=== PATIENT | female | born 2000 | race Caucasian/White ===

== ENCOUNTER 2019-07-23 16:54 | Emergency (ER) | payer BC, SELFPAY ==
[2019-07-23 17:08] VITALS: BP 108/65; PULSE 89; RESP 16; TEMP 37.1; O2SAT 99
--- NOTE | 2019-07-23 17:10 | ED.ABDPAIN ---
HPI - Abdominal Pain General Chief Complaint: Abdominal Pain Stated Complaint: lower abdominal pain Time Seen by Provider: 07/23/19 17:10 Source: patient and RN notes reviewed History of Present Illness HPI narrative: Patient is a 18-year-old female that presents the urgent care with complaints of possible UTI related to lower abdominal pain and bilateral flank pain. Patient states is been off and on for approximately 2 weeks. States that she did have a period 2 weeks ago and has had a negative test. Patient denies any fever or vomiting. Reports of intermittent nausea. Denies any vaginal discharge. Denies any need for STI check. Denies any blood in the urine. No other acute complaints. No acute distress noted. Patient read the plan of care. Related Data Home Medications Medication Instructions Recorded Confirmed clonazepam 0.5 mg PO DAILY 03/04/19 03/26/19 sertraline [Zoloft] 100 mg PO DAILY 03/04/19 03/26/19 Allergies Allergy/AdvReac Type Severity Reaction Status Date / Time sulfamethoxazole Allergy Mild RASH Verified 04/06/19 14:52 trimethoprim Allergy Mild Verified 04/06/19 14:52 ENVIRONMENTAL ALLERGENS Allergy Mild Uncoded 04/06/19 14:52 Review of Systems Review of Systems: Narrative: CONSTITUTIONAL: Denies fever, chills, or sweats. EYES: Denies visual changes, redness, or discharge. ENT: Denies rhinorrhea, congestion, sore throat, or otalgia. CARDIOVASCULAR: Denies chest pain, palpitations, or edema. RESPIRATORY: Denies cough or dyspnea. GASTROINTESTINAL: Reports of intermittent lower abdominal pain without nausea, vomiting, diarrhea GENITOURINARY: Denies dysuria or hematuria. SKIN: Denies rash or itching. MUSCULOSKELETAL: Reports of low back pain NEUROLOGIC: Denies headache, numbness, or weakness. All other systems reviewed are negative, except as documented in HPI. [facility] Past Medical History Medical History (Updated 07/23/19 @ 17:21 by ROBEL Arceo) Anxiety Depression HSV (herpes simplex virus) anogenital infection Family History Family History (System 04/06/19 @ 14:52 by Martha Gonzáles) Father Heart disease Mother Anxiety Asthma Mother Anxiety Social History Social History (System 04/06/19 @ 14:52 by Martha Gonzáles) Smoking packs per day: 1 Smoking cigarettes per day: 20.0 Years smoked: 4 Smoking pack-years: 4.00 Smoking status: Current every day smoker Tobacco type: cigarettes Second hand tobacco smoke exposure: Yes Substance use: never Gender identity (if verbalized by the patient): Female Spiritual care concerns: No Comments At the time of my signature, I reviewed and agree with the nursing past medical, surgical, social, and family history. There is no relevant family history pertinent to the patient complaint. Exam Narrative: Exam Narrative: GENERAL: This is a well-nourished, well-developed patient, in no apparent distress. HEAD: normocephalic, atraumatic. EYES: PERRL. Sclera clear/white. Vision is grossly intact. EARS: External ears normal NOSE: External nose normal with no obvious nasal discharge THROAT: Mucous membranes moist NECK: Neck supple CARDIOVASCULAR: Regular rate and rhythm without murmurs, gallops, or rubs. RESPIRATORY: Clear to auscultation. Breath sounds equal bilaterally. No wheezes, rales, or rhonchi. GASTROINTESTINAL: Abdomen soft, mild suprapubic tenderness, nondistended. Bowel sounds are hyperactive. No guarding. Obturator negative SKIN: warm, intact with no suspicious lesions or rash, good texture and turgor. NEURO: awake, alert, and oriented to person, place and time. There were no obvious focal neurologic abnormalities. EXTREMITIES: No clubbing, cyanosis, or edema. BACK: Negative bilateral CVA tenderness Course Vital Signs Vital signs: Vital Signs Temperature 98.7 F 07/23/19 17:08 Pulse Rate 89 07/23/19 17:08 Respiratory Rate 16 07/23/19 17:08 Blood Pressure 108/65 07/23/19
== END 2019-07-23 17:28 | disposition home or self-care (01) ==
PROVIDERS: Emergency Provider Nurse Practitioner Family; PCP Nurse Practitioner Family
DX: R11.0 Nausea (principal); F17.210 Nicotine dependence, cigarettes, uncomplicated
CPT/HCPCS: 81003; 99212; G0463

== ENCOUNTER 2019-12-11 05:10 | Emergency (ER) | payer BC, SELFPAY ==
[2019-12-11 05:20] VITALS: BP 117/88; PULSE 108; RESP 22; TEMP 36.8; O2SAT 98
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
--- NOTE | 2019-12-11 06:32 | PC.NURSE ---
pt left the building s/p talking to her dad on the phone.
[2019-12-11 06:46] VITALS: BP 118/71; PULSE 90; RESP 20; O2SAT 97
== END 2019-12-11 06:50 | disposition home or self-care (01) ==
PROVIDERS: Emergency Provider Emergency Medicine
DX: S01.01XA Laceration without foreign body of scalp, initial encounter (principal); W19.XXXA Unspecified fall, initial encounter
CPT/HCPCS: 12004; 99282

== ENCOUNTER 2020-03-10 20:21 | Emergency (ER) | payer OTHER, SELFPAY ==
--- NOTE | ~2020-03-10 | XR_ITS ---
EXAMINATION: XR hand LT min 3V INDICATION: Left hand pain and laceration TECHNIQUE: Three views of the left hand are obtained. COMPARISON: 10/10/2015 FINDINGS: Bone alignment is normal. There is no fracture. No radiopaque foreign body is identified. T here appears to be soft tissue swelling near the fifth proximal phalanx. IMPRESSION: 1. Soft tissue swelling without acute osseous abnormality or radiopaque foreign body identified. Reviewed, dictated and finalized at location [facility]. [facility] [employer]
--- NOTE | ~2020-03-10 | XR_ITS ---
EXAMINATION: XR hand RT min 3V INDICATION: Right hand pain and laceration TECHNIQUE: Three views of the right hand are obtained. COMPARISON: 10/10/2015 FINDINGS: Dressings somewhat obscure visualization of the hand soft tissues. There is soft tissue swe lling of the third and fourth fingers as well as near the fifth metacarpophalangeal joint. No radiopa que foreign body is identified. No fracture is identified. IMPRESSION: 1. Soft tissue swelling without evidence of radiopaque foreign body or acute osseous abnormality. Reviewed, dictated and finalized at location [facility]. [employer] IMPRESSION: 1. Soft tissue swelling without evidence of radiopaque foreign body or acute os seous abnormality.
[2020-03-10 20:23] VITALS: BP 135/74; PULSE 126; RESP 18; TEMP 36.8; O2SAT 98
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
[2020-03-10] MEDS: LIDOCAINE HCL 1% LOCAL INJ 20 ML VIAL INFILTRATE (21:36)
[2020-03-10] MEDS: CELLULOSE OXIDIZED 2 x 14 INCH 1 PKT XX (22:28)
[2020-03-10 22:45] VITALS: BP 127/88; PULSE 93; RESP 16; O2SAT 100
== END 2020-03-10 22:46 | disposition home or self-care (01) ==
PROVIDERS: Emergency Provider Emergency Medicine; PCP Nurse Practitioner Family
DX: S61.411A Laceration without foreign body of right hand, initial encounter (principal); S61.412A Laceration without foreign body of left hand, initial encounter; F41.9 Anxiety disorder, unspecified; F32.9 Major depressive disorder, single episode, unspecified; F17.210 Nicotine dependence, cigarettes, uncomplicated; W22.8XXA Striking against or struck by other objects, initial encounter
CPT/HCPCS: 12002; 73130; 99283

== ENCOUNTER 2020-06-26 18:19 | Emergency (ER) | payer OTHER, SELFPAY ==
--- NOTE | 2020-06-26 18:22 | ECG_ITS ---
Measurements Intervals [place] Rate: 99 P: 83 SC: 128 QRS: 75 QRSD: 89 T: 24 QT: 343 QTc: 440 Interpretive Statements SINUS RHYTHM INCOMPLETE RIGHT BUNDLE BRANCH BLOCK BORDERLINE T WAVE ABNORMALITY- ANT/INF LEADS BASELINE ARTIFACT- I, III, AVL, V3 BORDERLINE ECG Electronically Signed On 06-27-2020 7:02:43 CDT by Julien Mooney D.O.
--- NOTE | 2020-06-26 18:44 | PC.NURSE ---
PATIENT CALLED BACK TO GET EKG AND STATES CAN YOU TAKE OUT THIS IV, IM LEAVING PT AMBULATED TO EXIT WITH NO DIFFICULTY
== END 2020-06-26 18:44 | disposition left against medical advice (07) ==
LOC: ANHED 18:54
PROVIDERS: Emergency Provider Family Medicine; PCP Nurse Practitioner Family
DX: I45.10 Unspecified right bundle-branch block (principal)
CPT/HCPCS: 93005; 99199

== ENCOUNTER 2022-07-03 18:56 | Emergency (ER) | payer OTHER, SELFPAY ==
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
[2022-07-03 19:05] VITALS: BP 127/85; PULSE 105; RESP 16; TEMP 36.3; O2SAT 99
[2022-07-03 19:07] VITALS: BP 127/85; PULSE 105; RESP 16; TEMP 36.3; O2SAT 99
== END 2022-07-03 19:35 | disposition home or self-care (01) ==
PROVIDERS: Emergency Provider Nurse Practitioner Family
DX: S61.411A Laceration without foreign body of right hand, initial encounter (principal); W25.XXXA Contact with sharp glass, initial encounter; F17.210 Nicotine dependence, cigarettes, uncomplicated
CPT/HCPCS: 12001; 99212; G0463

== ENCOUNTER 2023-12-27 16:20 | Emergency (ER) | payer OTHER, SELFPAY ==
--- NOTE | 2023-12-27 16:22 | ED.EXTPRO ---
HPI - Extremity Problem General Chief complaint: Extremity Problem,Nontraumatic Stated complaint: left thumb issue Time Seen by Provider: 12/27/23 16:21 Source: patient Mode of arrival: ambulatory Limitations: no limitations History of Present Illness HPI Narrative: Elvira is a 23-year-old female patient presenting to the clinic today with complaints left thumb swelling and redness. She reports it started out with a blister to the volar aspect of the left thumb and then it became red and swollen. Attempted to pop the area today and got some clear fluid out. She denies any fever or chills. Allergic to Bactrim. Has what appears to be pus under the skin on the distal volar aspect of the thumb as well as to the medial thumb nail Related Data Home Medications Medication Instructions Recorded Confirmed clonazepam 1 mg tablet 1 mg PO DAILY 07/03/22 12/27/23 quetiapine 25 mg tablet 25 mg PO DAILY 07/03/22 12/27/23 venlafaxine 37.5 mg 37.5 mg PO DAILY 07/03/22 12/27/23 capsule,extended release 24 hr venlafaxine 75 mg capsule,extended 75 mg PO DAILY 07/03/22 12/27/23 release 24 hr Allergies Allergy/AdvReac Type Severity Reaction Status Date / Time sulfamethoxazole Allergy Mild RASH Verified 12/27/23 16:28 trimethoprim Allergy Mild Unknown Verified 12/27/23 16:28 ENVIRONMENTAL ALLERGENS Allergy Mild Unknown Uncoded 12/27/23 16:28 Review of Systems Review of Systems: Pertinent positives per HPI. Patient denies any fever, chills, rash, headache, visual changes, dizziness, cough, runny nose, sore throat, shortness of breath, chest pain, palpitations, nausea, vomiting, diarrhea, constipation, abdominal pain, or any urinary issues. [facility] Past Medical History Medical History Anxiety Depression HSV (herpes simplex virus) anogenital infection Family History Family History Father Congestive heart failure Mother Anxiety Asthma Mother No problems noted. Social History Social History Smoking packs per day: 1 Smoking cigarettes per day: 20.0 Years smoked: 4 Smoking pack-years: 4.00 Smoking status: Current every day smoker Tobacco type: cigarettes Second hand tobacco smoke exposure: Yes Alcohol intake: current Substance use: never Gender identity (if verbalized by the patient): Female Spiritual care concerns: No Comments At the time of my signature, I reviewed and agree with the nursing past medical, surgical, social, and family history. There is no relevant family history pertinent to the patient complaint. Exam Narrative: General: Well-developed, well nourished, in no apparent distress Head: Normocephalic, atraumatic. Cardio: Regular rate and rhythm, s1 and s2 normal, no murmur appreciated. Resp: Clear to auscultation bilaterally, no rhonchi, rales, wheezing or rubs. Integumentary: [place], warm, and dry, redness and swelling to the PIP joint to the distal left thumb. Has what appears to be pus under the skin on the distal volar aspect of the thumb as well as to the medial thumb nail Course Course Emergency Course: Portions of this record may have been created with voice recognition software. Level of Care: Express Care Visit Vital Signs Vital signs: Vital signs reviewed MDM - Extremity (Nontraumatic) MDM Narrative Medical decision making narrative: At the time of visit patient is resting comfortably on the exam table. Patient appears to be nontoxic. Offered to drain and get a wound culture of the pustule area of the thumb and patient declined at this time. Plan: Will place patient on clindamycin to treat for left thumb cellulitis. Supportive measures were discussed with the patient and they voiced understanding discharge instructions and agrees to treatment plan. Return precautions reviewed Di
[2023-12-27 16:35] VITALS: BP 126/79; PULSE 75; RESP 18; TEMP 36.6; O2SAT 99
== END 2023-12-27 16:50 | disposition home or self-care (01) ==
PROVIDERS: Emergency Provider Nurse Practitioner Family; PCP Nurse Practitioner Family
DX: L03.012 Cellulitis of left finger (principal); F17.210 Nicotine dependence, cigarettes, uncomplicated; F41.9 Anxiety disorder, unspecified; F32.A Depression, unspecified
CPT/HCPCS: 99213; G0463

== ENCOUNTER 2024-10-02 18:19 | Emergency (ER) | payer OTHER, SELFPAY ==
[2024-10-02 18:26] VITALS: BP 108/68; PULSE 78; RESP 16; TEMP 36.6; O2SAT 99
--- NOTE | 2024-10-02 18:26 | ED.DENTAL ---
HPI - Dental/Oral General Chief complaint: Dental/Oral Stated complaint: Dental Pain/Ear Irritation Time Seen by Provider: 10/02/24 18:26 Source: patient Mode of arrival: ambulatory Limitations: no limitations History of Present Illness HPI Narrative: 24 yo F presents with c/o L upper dental pain. Pain radiating to L ear. Does not have dentist. All systems reviewed and negative except as noted above. Related Data Home Medications ?Medication ?Instructions ?Recorded ?Confirmed ?Last Taken ?Type clonazepam 1 mg tablet 1 mg PO DAILY 07/03/22 12/27/23 Unknown History sertraline 25 mg tablet mg 10/02/24 Unknown History Allergies Allergy/AdvReac Type Severity Reaction Status Date / Time sulfamethoxazole Allergy Mild RASH Verified 10/02/24 18:22 trimethoprim Allergy Mild Rash Verified 10/02/24 18:22 ENVIRONMENTAL ALLERGENS Allergy Mild Unknown Uncoded 10/02/24 18:22 Review of Systems Review of Systems: CONSTITUTIONAL: Denies fever, chills, or sweats. EYES: Denies visual changes, redness, or discharge. ENT: Denies rhinorrhea, congestion, sore throat, or otalgia. Reports L upper dental pain CARDIOVASCULAR: Denies chest pain, palpitations, or edema. RESPIRATORY: Denies cough or dyspnea. GASTROINTESTINAL: Denies abdominal pain, nausea, vomiting, or diarrhea. GENITOURINARY: Denies dysuria or hematuria. SKIN: Denies rash or itching. MUSCULOSKELETAL: Denies back pain, joint pain, or myalgia. NEUROLOGIC: Denies headache, numbness, or weakness. PSYCHIATRIC: Denies anxiety or depression. All other systems reviewed are negative, except as documented in HPI. [facility] Past Medical History Medical History Anxiety Depression HSV (herpes simplex virus) anogenital infection Family History Family History Father Congestive heart failure Mother Anxiety Asthma Mother No problems noted. Social History Social History Smoking packs per day: 1 Smoking cigarettes per day: 20.0 Years smoked: 4 Smoking pack-years: 4.00 Smoking status: Current every day smoker Tobacco type: cigarettes Second hand tobacco smoke exposure: Yes Alcohol intake: current Substance use: never Gender identity (if verbalized by the patient): Female Spiritual care concerns: No Comments At time of signature, agree with nursing past medical, surgical, social and family history. There is no relevant family history pertinent to the presenting complaint. Exam Narrative: GENERAL: This is a well-nourished, well-developed patient, in no apparent distress. HEAD: normocephalic, atraumatic. EYES: PERRL. Sclera clear/white. Vision is grossly intact. EARS: External ears normal NOSE: External nose normal MOUTH: tenderness tooth #16, surrounding swelling. no fluctuance concerning for abscess. NECK: Neck supple, non-tender without lymphadenopathy, masses or thyromegaly. CARDIOVASCULAR: Regular rate and rhythm without murmurs, gallops, or rubs. RESPIRATORY: Clear to auscultation. Breath sounds equal bilaterally. No wheezes, rales, or rhonchi. SKIN: warm, Dry, intact with no suspicious lesions or rash, good texture and turgor. NEURO: awake, alert, and oriented to person, place and time. There were no obvious focal neurologic abnormalities. EXTREMITIES: No joint tenderness, effusion, or edema noted. Course Course Level of Care: Express Care Visit Vital Signs Vital signs: Vital Signs Temperature 36.6 C 10/02/24 18:26 Pulse Rate 78 10/02/24 18:26 Respiratory Rate 16 10/02/24 18:26 Blood Pressure 108/68 10/02/24 18:26 Pulse Oximetry 99 10/02/24 18:26 Oxygen Delivery Room Air 10/02/24 18:26 Temperature 36.6 C 10/02/24 18:26 Pulse Rate 78 10/02/24 18:26 Respiratory Rate 16 10/02/24 18:26 Blood Pressure 108/68 10/02/24 18:26 Pulse Oximetry 99 10/02/24 18:26 Oxygen Delivery Room Air 10/02/24 18:26 reviewed MDM - Dental/Oral MDM Narrative Medical decision making narrative: will treat dental pain with abx. pt well appearing, nontoxic. given dental clinic list for follow up . Discharge Plan Discharge Clinical Impression: Pain, dental Patient Disposition: Home Condition: Stable Instructions: Antibiotic Form, Toothache (ED) Additional Instructions: take antibiotic as prescribed until gone. Take ibuprofen every 6-8 hours as needed for pain. Follow-up with dentist at next available appointment. Patient Language: Wolof Prescriptions: New ibuprofen 800 mg tablet 800 mg PO TID PRN (Reason: pain) Qty: 30 0RF amoxicillin 875 mg tablet 875 mg PO Q12H 10 Days Qty: 20 0RF No Action clonazepam 1 mg tablet 1 mg PO DAILY sertraline 25 mg tablet Follow-up/Referrals: ABDULAZIZ,MATILDA CARWLEY [Primary Care Provider] - Time of Disposition: 18:34
== END 2024-10-02 18:40 | disposition home or self-care (01) ==
PROVIDERS: Emergency Provider Nurse Practitioner Family; PCP Nurse Practitioner Family
DX: K08.89 Other specified disorders of teeth and supporting structures (principal); F17.210 Nicotine dependence, cigarettes, uncomplicated; F41.9 Anxiety disorder, unspecified; F32.A Depression, unspecified
CPT/HCPCS: 99213; G0463

== ENCOUNTER 2024-12-15 11:09 | Emergency (ER) | payer OTHER, SELFPAY ==
--- NOTE | 2024-12-15 11:11 | ED_ITS ---
HPI - Dental/Oral General Chief complaint: Dental/Oral Stated complaint: Dental Pain Time Seen by Provider: 12/15/24 11:11 Source: patient Mode of arrival: ambulatory Limitations: no limitations History of Present Illness HPI Narrative: Patient is a 24-year-old female who presents with left lower dental pain for 2 days. Similar infection 2 months ago. Patient is attempting to establish with dentist currently. Patient has taken Tylenol ibuprofen and naproxen. Related Data Home Medications ?Medication ?Instructions ?Recorded ?Confirmed ?Last Taken ?Type diazepam 2 mg tablet mg 12/15/24 Unknown History sertraline 50 mg tablet mg 12/15/24 Unknown History Allergies Allergy/AdvReac Type Severity Reaction Status Date / Time sulfamethoxazole Allergy Mild RASH Verified 12/15/24 11:47 trimethoprim Allergy Mild Rash Verified 12/15/24 11:47 ENVIRONMENTAL ALLERGENS Allergy Mild Unknown Uncoded 10/02/24 18:22 Review of Systems Review of Systems: All systems reviewed & are unremarkable except as noted in HPI and below Constitutional: Constitutional: Denies body ache(s), Denies fever(s), Denies headache(s), Denies malaise and Denies weakness Eyes: Eyes: Denies loss of vision ENT: Denies otalgia, Reports facial pain (jaw), Denies headache(s), Denies nasal discharge, Denies sinus pain and Denies sore throat Cardiovascular: Cardiovascular: Denies chest pain, Denies irregular heart rhythm and Denies dyspnea Respiratory: Respiratory: Denies dyspnea Gastrointestinal: Gastrointestinal: Denies abdominal pain, Denies melena, De nies hematochezia, Denies diarrhea, Denies nausea and Denies vomiting Musculoskeletal: Musculoskeletal: Denies back pain, Denies myalgias and Denies arthralgias Integumentary/Breasts: Skin/Breast: Denies pruritus and Denies rash Neurologic: Denies headache(s), Denies loss of vision and Denies weakness Psychiatric: Psychiatric: Reports no additional psychiatric complaints PMFSH Past Medical History Medical History Depression Anxiety HSV (herpes simplex virus) anogenital infection Family History Family History Father Congestive heart failure Mother Anxiety Asthma Mother No problems noted. Social History Social History Smoking packs per day: 1 Smoking cigarettes per day: 20.0 Years smoked: 4 Smoking pack-years: 4.00 Smoking status: Current every day smoker Tobacco type: cigarettes Second hand tobacco smoke exposure: Yes Alcohol intake: current Substance use: never Gender identity (if verbalized by the patient): Female Spiritual care concerns: No Comments At time of signature, agree with nursing past medical, surgical, social and family history. There is no relevant family history pertinent to the presenting complaint. Exam Const: General: cooperative, healthy appearing, comfortable, no acute distress and well nourished Nutritional Appearance: well nourished Orientation/consciousness: patient oriented x3 Limitations: no limitations HENMT: Head: normal to inspection, normocephalic and atraumatic Ears: hearing grossly normal bilaterally, external ears normal, TM's normal bilaterally and mastoids normal bilaterally Face/Nose/Sinus: Normal external nose present, normal facial exam and face symmetric Face and sinus: normal facial exam and face symmetric Mouth: Yes Normal oral and palatal mucosa present, Yes lip normal, Yes tongue normal, Yes Normal salivary glands and ducts present, Yes moist mucous membranes, No drooling, No muffled voice and No trismus Teeth and gingiva: abnormal tooth and associated gingiva lower left second molar tender, with associated gingival edema, dentin fractured and pulp exposed and fair dentition Throat: posterior oropharynx normal and tonsils normal Other: The tooth in question is very carious and the gum is swollen and tender around it. There is no facial swelling, cervical or submandibular lymphadenopathy. The patient appears uncomfortable and in pain. Eyes: General: appearance normal, both eyes and all related structures Alig nment and Position: alignment normal and position normal Periorbital: periorbital findings normal Eyelids: eyelids normal Pupils: Equal, round and reactive pupils present EOM: EOMs intact bilaterally Neck: Neck: normal visual inspection, full ROM, no lymphadenopathy and supple Chest: Chest palpation & inspection: normal inspection of the chest Resp: Effort & Inspection: normal respiratory effort and able to speak in complete sentences Auscultation: clear to auscultation bilaterally Cardio: Rate: regular rate Rhythm: regular rhythm Heart sounds: S1 normal heart sound present and S2 normal heart sound present GI: Inspection: normal to inspection Skin: General skin exam: normal color and no rashes or lesions noted Neuro: General: patient oriented x3 and moves all extremities Cranial nerves: Yes Equal, round and reactive pupils present Speech: normal speech Gait exam (Neuro): Normal gait present Extrem: General: normal to inspection, full ROM and no edema Psych: Appearance: grossly normal and well kempt Mental Status: mental status grossly normal Speech and movement: Normal speech and movement present Affect: normal affect Attitude: cooperative Thought process: Normal thought process present Course Course Emergency Course: Patient is aware of diagnosis, understands and agrees to treatment plan. Anticipatory guidance given. Patient agrees to follow-up as directed and is aware of reasons to seek care at the emergency department. Portions of this record may have been created with voice recognition software Level of Care: Express Care Visit Vital Signs Vital signs: Reviewed MDM - Dental/Oral MDM Narrative Medical decision making narrative: Patients pain and complaint coupled with physical findings are consistant with dentalgia. There are no focal signs of space occupying lesions that are compromising to the airway; no dysphagia, odynophagia, dysphonia, or dyspnea. No uvular deviation or soft palate edema. Patient is non-toxic appearing. The floor of the mouth is soft with no signs of Isacc's Angina; no induration below mandible, no neck pain. Patient is without trismus or drooling and able to swallow secretions. Patient is felt appropriate for discharge home with dental follow up. Differential Diagnosis Differential diagnosis: Likely gingival abscess, dental caries, toothache, dental abscess and fracture of tooth Medical Records Attestation: I reviewed the patient's medical records. Discharge Plan Discharge Clinical Impression: Dental infection Patient Disposition: Home Condition: Stable Instructions: Dental Abscess (ED) Additional Instructions: Take antibiotic until it's gone. Brushing teeth at least twice daily with gentle flossing. Avoid temperature extremes---when you eat. Salt gargle to rinse your mouth after every meal You may apply ice to the face to reduce pain/swelling. For pain, you may take: Tylenol 650-1000mg by mouth every 6 hours. Do not exceed 4000mg in 24 hours. Advil (Ibuprofen) 600 mg by mouth every 6 hours. Do not exceed 2400mg in 24 hours. Take Motrin alternating with Tylenol for pain and fever alternating every 3 hours. 8 AM: Tylenol 11 AM: Ibuprofen 2 PM: Tylenol 5 PM: Ibuprofen 8 PM: Tylenol 11 PM: Ibuprofen 2 AM: Tylenol 5 AM: Ibuprofen Also, recommend regular dental check up one-two times a year to prevent tooth decay and other periodontal disease. Follow-up with the dentist as soon as possible--see the list provided If you have any worsening swelling, pain, fever or difficulty swallowing go straight to the emergency department Patient Language: Chilean Prescriptions: New ibuprofen 600 mg tablet 600 mg PO QID PRN (Reason: fever or pain) Qty: 60 0RF amoxicillin-pot clavulanate 875-125 mg tablet 1 tablet PO Q12H 10 Days Qty: 20 0RF No Action diazepam 2 mg tablet sertraline 50 mg tablet Follow-up/Referrals: Juan,Gallo Garcia MD [Primary Care Provider, Unknown] - 3 Days Time of Disposition: 12:00
[2024-12-15 11:17] VITALS: BP 127/91; PULSE 86; RESP 18; TEMP 36.5; O2SAT 100
== END 2024-12-15 12:07 | disposition home or self-care (01) ==
PROVIDERS: Emergency Provider Nurse Practitioner Family; PCP Family Medicine
DX: K04.7 Periapical abscess without sinus (principal); F17.210 Nicotine dependence, cigarettes, uncomplicated; F41.9 Anxiety disorder, unspecified; F32.A Depression, unspecified
CPT/HCPCS: 99213; G0463

== ENCOUNTER 2025-01-09 18:04 | Emergency (ER) | payer OTHER, SELFPAY ==
--- NOTE | 2025-01-09 18:06 | ED.URI ---
HPI - URI/Sore Throat General Chief Complaint: Upper Respiratory Infection Stated Complaint: cough/sore throat/trouble breathing Time Seen by Provider: 01/09/25 18:05 Source: patient Mode of arrival: ambulatory Limitations: no limitations History of Present Illness HPI Narrative: Patient a 24-year-old female who presents with cough, sore throat, wheezing for 3 days. States she is out of her inhaler. Denies any fever, chills, nausea, vomiting, diarrhea. Related Data Home Medications ?Medication ?Instructions ?Recorded ?Confirmed ?Last Taken ?Type diazepam 2 mg tablet 2 mg 12/15/24 Unknown History naltrexone 50 mg tablet mg 01/09/25 Unknown History sertraline 100 mg tablet mg 01/09/25 Unknown History Allergies Allergy/AdvReac Type Severity Reaction Status Date / Time sulfamethoxazole Allergy Mild RASH Verified 01/09/25 18:35 trimethoprim Allergy Mild Rash Verified 01/09/25 18:35 ENVIRONMENTAL ALLERGENS Allergy Mild Unknown Uncoded 10/02/24 18:22 Review of Systems Review of Systems: All systems reviewed & are unremarkable except as noted in HPI and below Constitutional: Constitutional: Denies chills, Denies fatigue, Denies fever(s), Denies headache(s), Denies malaise and Denies weakness Eyes: Eyes: Denies blurry vision, Denies itchy eyes and Denies loss of vision ENT: Denies otalgia, Denies headache(s), Reports nasal congestion, Denies sinus pain and Reports sore throat Cardiovascular: Cardiovascular: Denies chest pain, Denies irregular heart rhythm and Denies dyspnea Respiratory: Respiratory: Reports cough, Denies dyspnea and Reports wheezing Gastrointestinal: Gastrointestinal: Denies abdominal pain, Denies diarrhea, Denies nausea and Denies vomiting Musculoskeletal: Musculoskeletal: Denies back pain, Denies myalgias and Denies arthralgias Integumentary/Breasts: Skin/Breast: Denies pruritus and Denies rash Neurologic: Denies headache(s), Denies loss of vision and Denies weakness Psychiatric: Psychiatric: Reports no additional psychiatric complaints Endocrine: Endocrine: Denies fatigue Allergic/Immunologic: Allergic/Immunologic: Denies itchy eyes PMFSH Past Medical History Medical History Depression Anxiety HSV (herpes simplex virus) anogenital infection Family History Family History Father Congestive heart failure Mother Anxiety Asthma Mother No problems noted. Social History Social History Smoking packs per day: 1 Smoking cigarettes per day: 20.0 Years smoked: 4 Smoking pack-years: 4.00 Smoking status: Current every day smoker Tobacco type: cigarettes Second hand tobacco smoke exposure: Yes Alcohol intake: current Substance use: never Gender identity (if verbalized by the patient): Female Spiritual care concerns: No Comments At time of signature, agree with nursing past medical, surgical, social and family history. There is no relevant family history pertinent to the presenting complaint. Exam Const: General: cooperative, healthy appearing, comfortable, no acute distress and well nourished Nutritional Appearance: well nourished Orientation/consciousness: patient oriented x3 Limitations: no limitations HENMT: Head: normal to inspection, normocephalic and atraumatic Ears: hearing grossly normal bilaterally, external ears normal, TM's normal bilaterally, EAC's normal and no periauricular adenopathy Face/Nose/Sinus: Normal external nose present, Abnormal mucous membranes and turbinates present erythematous bilateral and diffuse, normal facial exam, sinuses nontender and face symmetric Face and sinus: normal facial exam, sinuses nontender and face symmetric Mouth: Yes Normal oral and palatal mucosa present, Yes lip normal, Yes tongue normal, Yes Normal salivary glands and ducts present, Yes oropharynx normal and Yes moist mucous membranes Teeth and gingiva: dentition normal Throat: posterior oropharynx normal, tonsils normal and uvula midline Eyes: General: appearance normal, both eyes and all related structures Alignment and Position: alignment normal and position normal Periorbital: periorbital findings normal Eyelids: eyelids normal Pupils: Equal, round and reactive pupils present Neck: Neck: normal visual inspection, full ROM, no lymphadenopathy and supple Chest: Chest palpation & inspection: normal inspection of the chest and normal palpation of entire chest wall Resp: Effort & Inspection: normal respiratory effort and able to speak in complete sentences Auscultation: no crackles, no rales, no rhonchi and wheezes inspiratory wheezes and throughout Cardio: Rate: tachycardic Rhythm: regular rhythm Heart sounds: S1 normal heart sound present and S2 normal heart sound present GI: Inspection: normal to inspection Skin: General skin exam: normal color and no rashes or lesions noted Neuro: General: patient oriented x3 and moves all extremities Cranial nerves: Yes Equal, round and reactive pupils present Speech: normal speech Gait exam (Neuro): Normal gait present Extrem: General: normal to inspection, full ROM and no edema Psych: Appearance: grossly normal and well kempt Mental Status: mental status grossly normal Speech and movement: Normal speech and movement present Affect: normal affect Attitude: cooperative Thought process: Normal thought process present Course Course Emergency Course: Discharge instructions reviewed with patient, as well as provided in writing per nursing staff. The instructions also include specific and strict return/GO TO THE ER as well as f/u information. All questions have been answered, and the patient deny any further questions with discharge and discharge plan. Portions of this record may have been created with voice recognition software Level of Care: Express Care Visit Vital Signs Vital signs: Vital Signs Temperature 36.3 C L 01/09/25 18:25 Pulse Rate 105 H 01/09/25 18:25 Respiratory Rate 20 01/09/25 18:25 Blood Pressure 112/69 01/09/25 18:25 Pulse Oximetry 98 01/09/25 18:25 Oxygen Delivery Room Air 01/09/25 18:25 Temperature 36.3 C L 01/09/25 18:25 Pulse Rate 105 H 01/09/25 18:25 Respiratory Rate 20 01/09/25 18:25 Blood Pressure 112/69 01/09/25 18:25 Pulse Oximetry 98 01/09/25 18:25 Oxygen Delivery Room Air 01/09/25 18:25 Reviewed MDM - URI/Sore Throat MDM Narrative Medical decision making narrative: Patient given breathing treatment. Res is no longer present after breathing treatment. Some scattered rhonchi that clears with deep cough Pt well hydrated appearing, hemodynamically stable. Recommend supportive care. The patient is stable at time of discharge the clinical impression was discussed and the patient was given the opportunity to ask questions, which were addressed as completely as possible given the information available at present. Anticipatory guidance and return to care precautions were discussed and the importance of primary care follow-up was stressed and encouraged. The patient voiced understanding of the plan, indications to return, and the need for follow-up. Exam findings show no acute concerns or changes Patient is appropriate for outpatient treatment and follow-up. Differential diagnosis considered: Narvaez virus, strep pharyngitis, allergic rhinitis, upper respiratory tract infection, sinusitis, rhinosinusitis, nasopharyngitis. viral pharyngitis, otitis media, otitis externa, otitis effusion, foreign body, cerumen impaction, viral syndrome, and influenza.? Medical Records Attestation: I reviewed the patient's medical records. Lab Data Attestation: I reviewed the patient's lab results. Labs: Lab Results 01/09/25 01/09/25 Range/Units 18:42 18:43 POC Influenza A Ag Positive (Negative) POC Influenza B Ag Negative (Negative) POC SARS CoV-2 Ag Negative (Negative) POC Grp A Strep Screen Negative (Negative) Discharge Plan Discharge Clinical Impression: Influenza Patient Disposition: Home Condition: Stable Instructions: Influenza (ED) Additional Instructions: Were positive for influenza A. Your Covid is negative Use inhaler with spacer. Take steroids in the morning with food Your symptoms are due to a viral illness, which is not treated with antibiotics. Viral symptoms can be present for up to a few weeks. -For fever/pain, you may take: Tylenol 650-1000mg by mouth every 4-6 hours. Do not exceed 4000mg in 24 hours. Advil (Ibuprofen) 600 mg by mouth every 6 hours. Do not exceed 2400mg in 24 hours. 8 AM: Tylenol 11 AM: Ibuprofen 2 PM: Tylenol 5 PM: Ibuprofen 8 PM: Tylenol 11 PM: Ibuprofen 2 AM: Tylenol 5 AM: Ibuprofen -Antihistamine medication such as Benadryl/Zyrtec at night and Claritin/Anaya during the day can help improve symptoms. -Use Flonase twice a day for 5 days then daily to help reduce the inflammation and dry up your sinuses. -You can also use Sudafed behind the pharmacy counter(12 or 24 hour). Be sure to drink plenty of water with these medications at least 8 ounces with every dose and it is important to drink 8 to 10 glasses of water per day. Water is a natural decongestant -Eat and drink things that are easy to swallow, like tea or soup, or popsicles. -Oral rinses such as: Salt water gargles and/or may use topical anesthetic (eg. Chloraseptic spray) or lozenges to relieve dryness or throat pain). -Frequent hand washing or hand video journalist is one of the best ways to prevent spread of infection. -Using a vaporizer or humidifier at night will also help thin secretions and help with coughing up phlegm. -Follow up with primary care provider in 3-5 days if condition is not improving - For new or worsening symptoms go directly to the nearest ER Patient Language: French Prescriptions: New albuterol sulfate 90 mcg/actuation HFA aerosol inhaler 2 puff inhalation QID PRN (Reason: shortness of breath or wheezing) Qty: 6.7 0RF (DME) Aerochamber MV Spacer See Rx Instructions .Route Qty: 1 0RF Rx Instructions: As directed prednisone 20 mg tablet 40 mg PO DAILY 5 Days Qty: 10 0RF No Action diazepam 2 mg tablet 2 mg naltrexone 50 mg tablet sertraline 100 mg tablet Follow-up/Referrals: Sourav Martinez MD [Primary Care Provider, Hospitalist] - 3 Days Stand Alone Forms: Work/School Release IP Time of Disposition: 19:05
[2025-01-09 18:25] VITALS: BP 112/69; PULSE 105; RESP 20; TEMP 36.3; O2SAT 98
[2025-01-09 18:44] LABS: EDCOVIDSCREEN Negative (Negative)
[2025-01-09 18:44] LABS: EDINFLUASCREEN Positive (Negative); EDINFLUBSCREEN Negative (Negative); EDSTREPNEGPOS1 Negative (Negative)
[2025-01-09] MEDS: IPRATROPIUM BR 0.02% INH SOLN 0.5 MG/2.5 ML VIAL INHALATION (18:56)
== END 2025-01-09 19:15 | disposition home or self-care (01) ==
PROVIDERS: Emergency Provider Nurse Practitioner Family; PCP Internal Medicine
DX: J10.1 Influenza due to other identified influenza virus with other respiratory manifestations (principal); Z20.822 Contact with and (suspected) exposure to COVID-19; F17.210 Nicotine dependence, cigarettes, uncomplicated; F41.9 Anxiety disorder, unspecified; F32.A Depression, unspecified
CPT/HCPCS: 87081; 87426; 87804; 87880; 99213; G0463